=== PATIENT | male | born 1965 | race Caucasian/White ===

== ENCOUNTER → 2021-05-09 15:51 | Outpatient (BNVA) | payer BC, SELFPAY | PROVIDERS: Family Provider Nurse Practitioner; PCP Nurse Practitioner; Visit Provider Nurse Practitioner Family | DX: Z20.822 Contact with and (suspected) exposure to COVID-19 (principal); J32.9 Chronic sinusitis, unspecified; J02.9 Acute pharyngitis, unspecified; Z86.19 Personal history of other infectious and parasitic diseases; J35.8 Other chronic diseases of tonsils and adenoids | CPT/HCPCS: 87635 ==

== ENCOUNTER → 2021-12-01 16:02 | Outpatient (BNVA) | payer BC, SELFPAY | PROVIDERS: Family Provider Nurse Practitioner; PCP Nurse Practitioner; Visit Provider Family Medicine | DX: J02.9 Acute pharyngitis, unspecified (principal); J01.90 Acute sinusitis, unspecified | CPT/HCPCS: 87071; 87880 ==

== ENCOUNTER 2022-07-17 06:01 | Outpatient (CLI) | payer BC, SELFPAY ==
--- NOTE | 2022-07-17 | CT_ITS ---
WS: [id number] CT NECK TECHNIQUE: Contrast-enhanced CT of the neck with coronal and sagittal reformatted images. CLINICAL INFORMATION: Gastro-esophageal reflux disease without esophagitis COMPARISON: None. DLP: 286.[address] scans at [facility] use at least one of these dose optimization techniques: automated e xposure control; mA and/or kV adjustment per patient size (includes targeted exams where dose is matc hed to clinical indication); or iterative reconstruction. FINDINGS: Mastoid air cells well aerated. Paranasal sinuses are well aerated. Normal posterior nasoph arynx. Normal parapharyngeal fat. [place] tonsils are normal. No evidence of supraglottic or glottic mass. Normal piriform sinuses. Normal subglottic airway. Small nodule or polypoid lesion along the L EFT true vocal cord inferiorly measuring 5 mm. Normal subglottic airway. Additional tiny mucosal poly poid lesion along the posterior subglottic airway just below the cricoid cartilage. Submandibular glands are normal. Parotid glands are normal. No cervical lymphadenopathy. Lung apices are well aerated. Moderate spondylitic changes cervical spine. Disc space narrowing worse at C5-C6 an d C6-C7. 5 mm low-attenuation RIGHT thyroid nodule. Thyroid is otherwise normal in appearance. CT/CT neck w con* [id number] IMPRESSION: 1. Normal posterior nasopharynx. Normal parapharyngeal fat. 2. No cervical lymphadenopathy. 3. Normal salivary glands. 4. Small mucosal polypoid nodules along the LEFT true vocal cord inferiorly an d posterior subglottic airway. This can be further evaluated with endoscopy. No other suspicious lesions. 5. 5 mm small RIGHT thyroid nodule. 6. No other suspicious findings.
[2022-07-17] MEDS: iohexol 350 mg/mL 500 mL Btl (per mL) IV (06:52)
== END 2022-07-17 06:02 | disposition home or self-care (01) ==
PROVIDERS: Visit Provider Specialist
DX: R13.10 Dysphagia, unspecified (principal)
CPT/HCPCS: 70491; Q9967

== ENCOUNTER 2022-08-07 07:13 | Outpatient (CLI) | payer BC, SELFPAY ==
--- NOTE | 2022-08-07 07:39 | FL_ITS ---
WS: [id number] ESOPHAGRAM WITH FLUOROSCOPY HISTORY: DYSPHAGIA COMPARISON: None available. FLUOROSCOPY TIME: 1min [id number] # of spot films: 128 Esophagus and swallowing function: Patient swallowed the barium mixture without difficulty. No high-g rade strictures. There is very minimal narrowing of the distal esophagus at the GE junction but no de lay in emptying of the contrast and the barium tablet was swallowed without difficulty. No esophageal erosions. Mild cricopharyngeal spasm in the lower cervical esophagus. Gastroesophageal reflux: Moderate amount of reflux was demonstrated with the patient supine position with reflux above the level of the heather. Hiatal hernia: Moderate reducible hiatal hernia. FL/FL barium swallow [id number] IMPRESSION: 1. Moderate gastroesophageal reflux to just above the heather. 2. Moderate sized reducible hiatal hernia.
== END 2022-08-07 07:14 | disposition home or self-care (01) ==
LOC: RAD 07:18
PROVIDERS: Visit Provider Specialist
DX: R13.10 Dysphagia, unspecified (principal); K21.9 Gastro-esophageal reflux disease without esophagitis; K44.9 Diaphragmatic hernia without obstruction or gangrene
CPT/HCPCS: 74220